=== PATIENT | female | born 1950 | race Caucasian/White ===

== ENCOUNTER 2023-07-20 11:09 | Emergency (ER) | payer MEDICARE, OTHER ==
[2023-07-20] MEDS ORDERED: cloNIDine 0.1 MG TAB ONE (13:27)
== END 2023-07-20 14:15 | disposition home or self-care (01) ==
LOC: ERS 11:09
DX: S09.90XA Unspecified injury of head, initial encounter (principal); M54.2 Cervicalgia; I10 Essential (primary) hypertension; W18.30XA Fall on same level, unspecified, initial encounter
CPT/HCPCS: 70450; 72125

== ENCOUNTER 2025-05-02 18:37 | Inpatient (IN) | payer MEDICARE, OTHER ==
[2025-05-02] MEDS ORDERED: hydrALAZINE 20 MG/ML VIAL SLOW IVP PRN (21:35)
[2025-05-02] MEDS ORDERED: Ondansetron PF 4 MG/2 ML Vial IVP PRN (21:35)
[2025-05-02] MEDS: Gabapentin 300 MG CAP PO SCH ×2 (22:38)
[2025-05-02] MEDS: Pantoprazole 40 MG DR.TAB PO SCH (22:40)
[2025-05-03 04:20] LABS: #Basophils Less than 0.03 10x3/uL (0.0-0.2); #Eosinophils 0.11 10x3/uL (0.0-0.7); #Monocytes 0.53 10x3/uL (0.11-0.59); #Neutrophils 2.76 10x3/uL (1.40-6.50); %Basophils 0.4 % (0.0-1.0); %Eosinophils 2.4 % (0.0-10.0); %Lymphocytes 24.9 % (21.0-51.0); %Monocytes 11.6 % (0.0-10.0); %Neutrophils 60.5 % (42.0-75.0); Hematocrit 31.5 % (36.0-47.0); Hemoglobin 9.5 g/dL (12.0-16.0); Mean Corpuscular Hemoglobin 29.8 pg (27.0-31.0); Mean Corpuscular Volume 98.7 fL (78.0-98.0); Platelet Count 108 10x3/uL (130-400); Red Blood Cell (RBC) Count 3.19 mill/uL (4.20-5.40); White Blood Cell (WBC) Count 4.57 10x3/uL (4.8-10.8)
[2025-05-03 04:31] LABS: Anion Gap 10 mmol/L (10-20); BUN (Urea Nitrogen) 21 mg/dL (9.8-20.1); Calc. Creatinine Clearance 0 mL/min (70-130); Calcium 8.1 mg/dL (7.8-10.44); Carbon Dioxide 26 mmol/L (23-31); Cardiac Risk 2.8 (Less than 4.5); Chloride 111 mmol/L (98-107); Cholesterol 115 mg/dl (< 200 Desired); Glucose 79 mg/dL (83-110); HDL Cholesterol 41 mg/dL (>60 Neg Risk); LDL Cholesterol, Calculated 60 mg/dL; Potassium 4.4 mmol/L (3.5-5.1); Sodium 143 mmol/L (136-145); Triglycerides 68 mg/dL (Less than 150)
[2025-05-03 07:11] VITALS: BMI 39.4
[2025-05-03] MEDS: Aspirin 81 mg Enteric Coated Tablet PO SCH (09:04)
[2025-05-03] MEDS: Sertraline 25 MG TAB PO SCH (09:04)
[2025-05-03] MEDS: Acetaminophen 325 MG TAB PO PRN (12:55)
[2025-05-03] MEDS: Pantoprazole 40 MG DR.TAB PO SCH (20:34)
[2025-05-04 05:03] LABS: Anion Gap 9 mmol/L (10-20); BUN (Urea Nitrogen) 19 mg/dL (9.8-20.1); Calc. Creatinine Clearance 69 mL/min (70-130); Calcium 8.2 mg/dL (7.8-10.44); Carbon Dioxide 27 mmol/L (23-31); Chloride 110 mmol/L (98-107); Glucose 92 mg/dL (83-110); Potassium 4.3 mmol/L (3.5-5.1); Sodium 142 mmol/L (136-145)
[2025-05-04 05:11] LABS: #Basophils Less than 0.03 10x3/uL (0.0-0.2); #Eosinophils 0.08 10x3/uL (0.0-0.7); #Monocytes 0.59 10x3/uL (0.11-0.59); #Neutrophils 3.00 10x3/uL (1.40-6.50); %Basophils 0.4 % (0.0-1.0); %Eosinophils 1.5 % (0.0-10.0); %Lymphocytes 29.8 % (21.0-51.0); %Monocytes 11.2 % (0.0-10.0); %Neutrophils 56.9 % (42.0-75.0); Hematocrit 32.2 % (36.0-47.0); Hemoglobin 9.7 g/dL (12.0-16.0); Mean Corpuscular Hemoglobin 29.7 pg (27.0-31.0); Mean Corpuscular Volume 98.5 fL (78.0-98.0); Platelet Count 112 10x3/uL (130-400); Red Blood Cell (RBC) Count 3.27 mill/uL (4.20-5.40); White Blood Cell (WBC) Count 5.27 10x3/uL (4.8-10.8)
[2025-05-04 11:48] VITALS: BP 127/51; TEMP 97.6
== END 2025-05-04 13:45 | DRG 65 ==
LOC: 2SE 20:10 → OBSVTOIN 05-03 09:43
PROVIDERS: ADMIT Internal Medicine; ATTEND Internal Medicine
DX: I63.531 Cerebral infarction due to unspecified occlusion or stenosis of right posterior cerebral artery (principal); G81.94 Hemiplegia, unspecified affecting left nondominant side; I10 Essential (primary) hypertension; K21.9 Gastro-esophageal reflux disease without esophagitis; E78.5 Hyperlipidemia, unspecified; M19.90 Unspecified osteoarthritis, unspecified site; Z96.619 Presence of unspecified artificial shoulder joint; D64.9 Anemia, unspecified; E03.9 Hypothyroidism, unspecified; Z88.8 Allergy status to other drugs, medicaments and biological substances; Z98.890 Other specified postprocedural states; Z90.49 Acquired absence of other specified parts of digestive tract; Z90.710 Acquired absence of both cervix and uterus; Z98.84 Bariatric surgery status; Z79.899 Other long term (current) drug therapy; Z79.890 Hormone replacement therapy
CPT/HCPCS: 36415; 70551; 80048; 80061; 85025; 93306; 93880; G0378

== ENCOUNTER 2025-05-19 00:47 | Inpatient (IN) | payer MEDICARE, OTHER ==
[2025-05-19] MEDS ORDERED: Ondansetron PF 4 MG/2 ML Vial IVP PRN (03:44)
[2025-05-19] MEDS ORDERED: Calcium Carbonate 500 MG ChewTAB PO PRN (03:44)
[2025-05-19] MEDS ORDERED: Electrolyte Replacement Protocol 1 EACH FS PRN (03:45)
[2025-05-19] MEDS: Acetaminophen 325 MG TAB PO PRN (04:38)
[2025-05-19] MEDS ORDERED: Acetaminophen 325 MG TAB ONE (04:38)
[2025-05-19 06:20] VITALS: BMI 38.5
[2025-05-19] MEDS ORDERED: Sertraline 100 MG TAB ONE (08:21)
[2025-05-19] MEDS ORDERED: Lisinopril 20 MG TAB ONE (08:21)
[2025-05-19] MEDS ORDERED: Apixaban 5 MG TAB ONE (08:22)
[2025-05-19] MEDS ORDERED: Aspirin Chewable 81 MG TAB ONE (08:22)
[2025-05-19] MEDS: Metoprolol Succinate XL 50 MG ER.TAB PO SCH (08:29)
[2025-05-19] MEDS: Lisinopril 20 MG TAB PO SCH (08:29)
[2025-05-19] MEDS: Sertraline 100 MG TAB PO SCH (08:29)
[2025-05-19] MEDS: Aspirin 81 mg Enteric Coated Tablet PO SCH (08:29)
[2025-05-19] MEDS: Apixaban 5 MG TAB PO SCH (08:29)
[2025-05-19] MEDS: Simethicone Chewable 80 MG TAB PO PRN (11:38)
[2025-05-19] MEDS: Pantoprazole 40 MG DR.TAB PO SCH (19:28)
[2025-05-19] MEDS: Gabapentin 300 MG CAP PO SCH (21:21)
[2025-05-20 05:37] LABS: #Basophils Less than 0.03 10x3/uL (0.0-0.2); #Eosinophils 0.08 10x3/uL (0.0-0.7); #Monocytes 0.48 10x3/uL (0.11-0.59); #Neutrophils 2.49 10x3/uL (1.40-6.50); %Basophils 0.5 % (0.0-1.0); %Eosinophils 1.9 % (0.0-10.0); %Lymphocytes 27.8 % (21.0-51.0); %Monocytes 11.2 % (0.0-10.0); %Neutrophils 58.1 % (42.0-75.0); Hematocrit 29.3 % (36.0-47.0); Hemoglobin 8.9 g/dL (12.0-16.0); Mean Corpuscular Hemoglobin 29.7 pg (27.0-31.0); Mean Corpuscular Volume 97.7 fL (78.0-98.0); Platelet Count 118 10x3/uL (130-400); Red Blood Cell (RBC) Count 3.00 mill/uL (4.20-5.40); White Blood Cell (WBC) Count 4.28 10x3/uL (4.8-10.8)
[2025-05-20 05:53] LABS: ALT (SGPT) 20 U/L (Less than 34); AST (SGOT) 20 U/L (11-34); Albumin 2.7 g/dL (3.1-4.5); Alkaline Phosphatase 45 U/L (40-110); Anion Gap 9 mmol/L (10-20); BUN (Urea Nitrogen) 16 mg/dL (9.8-20.1); Bilirubin, Total 0.4 mg/dL (0.3-1.2); Calc. Creatinine Clearance 93 mL/min (70-130); Calcium 8.4 mg/dL (7.8-10.44); Carbon Dioxide 28 mmol/L (23-31); Chloride 109 mmol/L (98-107); Globulin 2.5 g/dL (2.4-3.5); Glucose 83 mg/dL (83-110); Potassium 3.6 mmol/L (3.5-5.1); Sodium 142 mmol/L (136-145)
[2025-05-20] MEDS ORDERED: Metoprolol Succinate XL 50 MG ER.TAB PO SCH (09:00)
[2025-05-20] MEDS: cloNIDine 0.1 MG TAB PO SCH (09:49)
[2025-05-20 15:16] LABS: Iron 45 ug/dL (50-170); Iron Binding Capacity, Total 311 mcg/dL (265-497)
[2025-05-20] MEDS: Sodium Ferric Gluconate 250 MG in Sodium Chloride 0.9% 250 ML 250 ML IVPB SCH (15:53)
[2025-05-21] MEDS: Metoprolol Succinate XL 50 MG ER.TAB PO SCH (08:27)
[2025-05-21 11:39] VITALS: BP 132/59
[2025-05-21] MEDS: Estradiol 1 MG TAB PO SCH (11:50)
[2025-05-21 12:13] VITALS: TEMP 96.6
[2025-05-22] MEDS ORDERED: Estradiol 1 MG TAB PO SCH (09:00)
== END 2025-05-21 17:00 | disposition home or self-care (01) | DRG 310 ==
LOC: ERS 00:47 → ERHOLD 03:19 → 2NO 03:23 → IMCU/EMU 09:35 → 2NO 23:00 → OBSVTOIN 05-21 10:58
PROVIDERS: ADMIT Student in an Organized Health Care Education/Training Program; ATTEND Internal Medicine
DX: I48.91 Unspecified atrial fibrillation (principal); I10 Essential (primary) hypertension; E78.5 Hyperlipidemia, unspecified; K21.9 Gastro-esophageal reflux disease without esophagitis; M19.90 Unspecified osteoarthritis, unspecified site; Z96.619 Presence of unspecified artificial shoulder joint; E03.9 Hypothyroidism, unspecified; F41.9 Anxiety disorder, unspecified; I35.1 Nonrheumatic aortic (valve) insufficiency; I36.1 Nonrheumatic tricuspid (valve) insufficiency; I34.0 Nonrheumatic mitral (valve) insufficiency; Z86.73 Personal history of transient ischemic attack (TIA), and cerebral infarction without residual deficits; Z98.890 Other specified postprocedural states; Z90.49 Acquired absence of other specified parts of digestive tract; Z90.710 Acquired absence of both cervix and uterus; Z98.84 Bariatric surgery status; Z88.8 Allergy status to other drugs, medicaments and biological substances; Z79.899 Other long term (current) drug therapy
CPT/HCPCS: 36415; 80053; 82728; 83540; 83550; 85025; 93005; 96365; 96366; 99285; G0378; J2916; J7050; J7070